=== PATIENT | female | born 1995 | race African-American/Black ===

== ENCOUNTER 2016-10-23 09:41 | Emergency (ER) | payer SELFPAY ==
[~2016-10-23] VITALS: Ht 167.6 cm; Wt 81.6 kg
[~2016-10-23 09:41] MED LIST: PRED20TA PO; PROAIR HFA8.5 GM INH
[2016-10-23 10:02] VITALS: BP 117/69
[2016-10-23] MEDS ORDERED: FLUC150T PO (10:40)
[2016-10-23] MEDS ORDERED: OFLO5DRO OS (10:40)
--- NOTE | 2016-10-23 10:41 | PHYS DOC ---
Past Medical History Past Medical History: Hypertension Past Surgical History: Tonsillectomy, Other Additional Past Surgical Histo: HERNIA REPAIR Additional Information: nonsmoker Alcohol Use: None Drug Use: None Adult General Chief Complaint Chief Complaint: EYE PROBLEMS HPI HPI Patient is a 21 year old female who presents with left eye redness and irritation for 2 days. She has had drainage from the eye and matting of the eye in the mornings. She denies change in her vision. She did not injure the eye. She does not wear contact lenses. The patient also complains of an itchy rash under her breasts and in the groin for 3 years intermittently. She states that it feels like dry skin. She frequently changes her bath soap at home but has not changed it recently. She does not have a PCP. Review of Systems Review of Systems Constitutional: Denies fever or chills. [] Eyes: Denies change in visual acuity or eye pain. Reports left eye redness, itching, and drainage. HENT: Denies ear pain, nasal congestion or sore throat. [] Respiratory: Denies cough or shortness of breath. [] Musculoskeletal: Denies back pain or joint pain. [] Integument: Denies skin lesions. Reports rash in the groin and under the breasts. Neurologic: Denies headache, focal weakness or sensory changes. [] Allergies Allergies Allergies Coded Allergies Type Severity Reaction Last Updated Verified No Known Drug Allergies 07/19/16 No Physical Exam Physical Exam Constitutional: Well developed, well nourished, no acute distress, non-toxic appearance. [] HENT: Normocephalic, atraumatic, bilateral external ears normal, oropharynx moist, no oral exudates, nose normal. [] Eyes: PERRLA, EOMI. Left eye conjunctival injection with clear discharge. There is no foreign body seen. There is no swelling of the eyelids or periorbital region. Neck: Normal range of motion, no tenderness, supple, no stridor. [] Skin: Warm, dry, no erythema. There is an intertriginous rash under both breasts and in the groin bilaterally. Neurologic: Alert and oriented X 3, normal motor function, normal sensory function, no focal deficits noted. [] Psychologic: Affect normal, judgement normal, mood normal. [] Current Patient Data Vital Signs Vital Signs Date Time Temp Pulse Resp B/P Pulse Ox O2 Delivery O2 Flow Rate FiO2 10/23/16 10:02 97.6 65 18 100 Room Air 97.6 EKG EKG [] Radiology/Procedures Radiology/Procedures [] Course & Med Decision Making Course & Med Decision Making Pertinent Labs and Imaging studies reviewed. (See chart for details) [] Dragon Disclaimer Dragon Disclaimer This electronic medical record was generated, in whole or in part, using a voice recognition dictation system. Departure Departure Impression: Primary Impression: Conjunctivitis Additional Impression: Intertrigo Disposition: HOME, SELF-CARE Condition: STABLE Referrals: JONATAN GONZALEZ MD Patient Instructions: Bacterial Conjunctivitis, Pcuj-[id number], Intertrigo, Easy- to-Read Additional Instructions: Please use the prescribed antibiotic eye drops as directed for 1 week. Please practice good hand hygiene and wash your hands often to avoid spreading infection to others. Please avoid touching your eyes. If you do, wash your hands immediately. Please take the prescribed pills for your rash. Take 1 pill weekly. Please follow up with the [facility] specialist listed below if the rash does not improve. Return to the emergency department if you have any new or concerning symptoms. Scripts Fluconazole (Diflucan)150 Mg Tablet1 Tab PO WEEKLY #2 TAB Prov:TUAN HERNÁNDEZ 10/23/16 Ofloxacin (Ocuflox)5 Ml Drops1 Drop OS QID 7 Days Prov:TUAN HERNÁNDEZ 10/23/16 Problem Qualifiers Primary Impression: Conjunctivitis Conjunctivitis type: acute Acute conjunctivitis type: bacterial Laterality : left Qualified Code: H10.32 - Unspecified acute conjunctivitis, left eye TUAN HERNÁNDEZ Oct 23, 2016 10:40
== END 2016-10-23 11:24 | disposition home or self-care (01) ==
LOC: ER 09:41
DX: H10.9 Unspecified conjunctivitis (principal); L30.4 Erythema intertrigo; I10 Essential (primary) hypertension
CPT/HCPCS: 99283

== ENCOUNTER 2016-11-21 19:02 | Emergency (ER) | payer SELFPAY ==
[~2016-11-21] VITALS: Ht 167.6 cm; Wt 81.6 kg
[~2016-11-21 19:02] MED LIST changes: +FLUC150T PO; +OFLO5DRO OS
[2016-11-21 19:07] VITALS: BP 117/66
--- NOTE | 2016-11-21 20:01 | PHYS DOC ---
Past Medical History Past Medical History: Hypertension, Migraines Past Surgical History: Tonsillectomy, Other Additional Past Surgical Histo: HERNIA REPAIR Alcohol Use: None Drug Use: None Adult General Chief Complaint Chief Complaint: HEADACHE HPI HPI Patient is a 21 year old female who presents stating " I'm here for my blood pressure medicine". Patient states in 2014 they put her on blood pressure medicines and she stopped taking it. Patient states she would like to be back on the medication. Informed patient, my understanding her chief complaint is a headache. Patient states she does not have a headache. She states she wants her blood pressure medicine. I asked her what blood pressure medicine she takes, she states she does not know the name. She states the last time she took it was 2014. She states whenever she overworks herself her blood pressure goes up. 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 Review of Systems Review of Systems Constitutional: Denies fever or chills [] Eyes: Denies change in visual acuity, redness, or eye pain [] HENT: Denies nasal congestion or sore throat [] Respiratory: Denies cough or shortness of breath [] Cardiovascular: BP medication refill GI: Denies abdominal pain, nausea, vomiting, bloody stools or diarrhea [] : Denies dysuria or hematuria [] Musculoskeletal: Denies back pain or joint pain [] Integument: Denies rash or skin lesions [] Neurologic: Denies headache, focal weakness or sensory changes [] Endocrine: Denies polyuria or polydipsia [] Allergies Allergies Allergies Coded Allergies Type Severity Reaction Last Updated Verified No Known Drug Allergies 07/19/16 No Physical Exam Physical Exam Constitutional: Well developed, well nourished, no acute distress, non-toxic appearance. [] HENT: Normocephalic, atraumatic, bilateral external ears normal, oropharynx moist, no oral exudates, nose normal. [] Eyes: PERRLA, EOMI, conjunctiva normal, no discharge. [] Neck: Normal range of motion, no tenderness, supple, no stridor. [] Cardiovascular:Heart rate regular rhythm, no murmur [] Lungs & Thorax: Bilateral breath sounds clear to auscultation [] Abdomen: Bowel sounds normal, soft, no tenderness, no masses, no pulsatile masses. [] Skin: Warm, dry, no erythema, no rash. [] Back: No tenderness, no CVA tenderness. [] Extremities: No tenderness, no cyanosis, no clubbing, ROM intact, no edema. [] Neurologic: Alert and oriented X 3, normal motor function, normal sensory function, no focal deficits noted. [] Psychologic: Affect normal, judgement normal, mood normal. [] Current Patient Data Vital Signs Vital Signs Date Time Temp Pulse Resp B/P Pulse Ox O2 Delivery O2 Flow Rate FiO2 11/21/16 19:07 97.7 66 20 117/66 100 Room Air 97.7 EKG EKG [] Radiology/Procedures Radiology/Procedures [] Course & Med Decision Making Course & Med Decision Making Pertinent Labs and Imaging studies reviewed. (See chart for details) Patient is in the ED requesting a refill for her blood pressure medicine. She does not know the name of the medication, the last time she took it was 2014. Her vitals in the ED blood pressure is 117/66, heart rate 66, respiration 20 room air, O2 sats 100% on room air, temperature 97.7. She has no PCP. I provided a clinic list as well as a doctor's list, recommended she follows up with the primary care doctor and have the money to her BP is and they'll decide if she needs medication or not. Dragon Disclaimer Dragon Disclaimer This electronic medical record was generated, in whole or in part, using a voice recognition dictation system. Departure Departure Impression: Primary Impression: Medication refill Disposition: HOME, SELF-CARE Condition: STABLE Referrals: NO PCP (PCP) Please follow-up with a doctor from the list provided to have your blood pressure checked Patient Instructions: General Headache Without Cause, [id number] Additional Instructions: You were seen requesting a refill for your blood pressure medicine. Unfortunately you do not know the name of the medication you were on. Your blood pressure the emergency room is 117/66. Follow-up with a doctor from the list provided and have them monitor your blood pressure, they will decide if they will put you back on blood pressure medicines. ELIJAH ELISE APRN Nov 21, 2016 20:01
== END 2016-11-21 20:04 | disposition home or self-care (01) ==
LOC: ER 19:02
DX: Z76.0 Encounter for issue of repeat prescription (principal); I10 Essential (primary) hypertension; G43.909 Migraine, unspecified, not intractable, without status migrainosus
CPT/HCPCS: 99283

== ENCOUNTER 2017-09-02 09:13 | Emergency (ER) | payer SELFPAY ==
[2017-09-02 11:09] LABS: URINE HCG POC HCG NEGATIVE (Negative)
[2017-09-02 11:11] LABS: ADD MAN DIFF? NO
[2017-09-02 11:20] LABS: BASO # 0.1 x10^3/uL (0.0-0.2); BASO % 1 % (0-3); EOS # 0.1 x10^3/uL (0.0-0.7); EOS % 2 % (0-3); HEMATOCRIT 38.9 % (36.0-47.0); HEMOGLOBIN 12.7 g/dL (12.0-15.5); LYMPH # 1.9 x10^3/uL (1.0-4.8); LYMPH % 36 % (24-48); MEAN CORPUSCULAR HEMOGLOBIN 31 pg (25-35); MEAN CORPUSCULAR HGB CONC 33 g/dL (31-37); MEAN CORPUSCULAR VOLUME 93 fL (79-100); MONO # 0.6 x10^3/uL (0.0-1.1); MONO % 12 % (0-9); NEUT # 2.7 x10^3uL (1.8-7.7); NEUT % 50 % (31-73); PLATELET COUNT 218 x10^3/uL (140-400); RED BLOOD COUNT 4.17 x10^6/uL (3.50-5.40); RED CELL DISTRIBUTION WIDTH 14.8 % (11.5-14.5); WHITE BLOOD COUNT 5.4 x10^3/uL (4.0-11.0)
[2017-09-02 11:28] LABS: ANION GAP 8 (6-14); BLOOD UREA NITROGEN 10 mg/dL (7-20); BUN/CREATININE RATIO 13 (6-20); CALCIUM 8.8 mg/dL (8.5-10.1); CARBON DIOXIDE 26 mmol/L (21-32); CHLORIDE 108 mmol/L (98-107); CREATININE 0.8 mg/dL (0.6-1.0); GFR 106.6; GLUCOSE 94 mg/dL (70-99); POTASSIUM 3.5 mmol/L (3.5-5.1); SODIUM 142 mmol/L (136-145)
[2017-09-02 11:33] LABS: ALBUMIN 3.3 g/dL (3.4-5.0); ALBUMIN/GLOBULIN RATIO 0.8 (1.0-1.7); ALK PHOS 92 U/L (46-116); ALT (SGPT) 16 U/L (14-59); AST (SGOT) 19 U/L (15-37); TOTAL BILIRUBIN 0.4 mg/dL (0.2-1.0); TOTAL PROTEIN 7.5 g/dL (6.4-8.2)
[2017-09-02 11:39] LABS: NT-PRO BNP 37 pg/mL (0-124)
[2017-09-02 11:43] LABS: CKMB MASS < 0.5 ng/mL (0.0-3.6); CREATINE KINASE 112 U/L (26-192)
[2017-09-02 12:07] LABS: D-DIMER < 0.27 ug/mlFEU (0.00-0.50)
[2017-09-02] MEDS: ERYTHROMYCIN 0.5% OPHTH OINTMENT 1GM TUBE. OS (12:55)
== END 2017-09-02 13:00 | disposition home or self-care (01) ==
LOC: ER 09:13
DX: R06.02 Shortness of breath (principal); R25.2 Cramp and spasm; H57.12 Ocular pain, left eye; F41.9 Anxiety disorder, unspecified; I10 Essential (primary) hypertension; G43.909 Migraine, unspecified, not intractable, without status migrainosus
CPT/HCPCS: 36415; 71046; 80053; 81025; 82553; 83880; 85025; 85379; 99285-25

== ENCOUNTER 2019-08-13 17:16 | Emergency (ER) | payer SELFPAY ==
[~2019-08-13] VITALS: Ht 167.6 cm; Wt 63.5 kg
[~2019-08-13 17:16] MED LIST changes: +ALBU2.5V8 INH; +IBUP-1027 PO; +ORPH100T PO; -PROAIR HFA8.5 GM INH
[2019-08-13] MEDS ORDERED: ONDANSETRON PF 4 MG/2 ML VIAL. IV ONE (17:45)
[2019-08-13] MEDS ORDERED: FAMOTIDINE 20 MG/2 ML VIAL IVP ONE (17:45)
--- NOTE | 2019-08-13 17:51 | PHYS DOC ---
Past Medical History Past Medical History: No Pertinent History, Anxiety, Hypertension, Migraines (BOSSMAN KEYES) Past Surgical History: Tonsillectomy, Other Additional Past Surgical Histo: HERNIA REPAIR (BOSSMAN KEYES) Alcohol Use: Occasionally Drug Use: Marijuana (BOSSMAN KEYES) Adult General Chief Complaint Chief Complaint: FLU SYMPTOM HPI HPI Patient is a 24 year old F who is here today with concerns of vomiting and a bdominal pain since (3 days). She has also had sore throat, cough and congestion and has been around kids who were tested positive for strep throat. Pt reports when she eats she notices a burning in her chest and "heartburn". She has had a prior hernia surgery in the past but no other surgeries. She denies . (BOSSMAN KEYES) Review of Systems Review of Systems Constitutional: Denies fever. Reports chills. HENT: Reports nasal congestion and sore throat. Respiratory: Reports cough and congestion. Cardiovascular: Denies chest pain GI: Reports abd pain, nausea, vomiting and loose stools. : Denies dysuria or hematuria Musculoskeletal: Denies back pain or joint pain Integument: Denies rash or skin lesions Neurologic: Denies headache, focal weakness or sensory changes All other systems were reviewed and found to be within normal limits, except as documented in this note. (BOSSMAN KEYES) Current Medications Current Medications Current Medications Medications (Trade) Dose Ordered Sig/Elizabeth Start Time Stop Time Status Last Admin Dose Admin Ceftriaxone Sodium (Rocephin) 1 gm 1X ONCE 08/13/19 18:45 08/13/19 18:46 DC 08/13/19 18:51 1 GM Famotidine (Pepcid Vial) 20 mg 1X ONCE 08/13/19 17:45 08/13/19 18:03 DC 08/13/19 18:25 20 MG Ondansetron HCl (Zofran) 4 mg 1X ONCE 08/13/19 17:45 08/13/19 18:03 DC 08/13/19 18:25 4 MG Potassium Chloride (Klor-Con) 20 meq 1X ONCE 08/13/19 18:45 08/13/19 18:46 DC 08/13/19 18:50 20 MEQ (COOPER MIRAMONTES DO) Allergies Allergies Allergies Coded Allergies Type Severity Reaction Last Updated Verified No Known Drug Allergies 07/19/16 No (COOPER MIRAMONTES DO) Physical Exam Physical Exam Constitutional: Well developed, well nourished, no acute distress, non-toxic appearance. HENT: Normocephalic, atraumatic, bilateral external ears normal. Pharyngeal erythema, worse on R. No tonsilar exudate noted Neck: Normal range of motion, no tenderness, supple, no stridor. Cardiovascular:Heart rate regular rhythm, no murmur Lungs & Thorax: Bilateral breath sounds clear to auscultation Abdomen: Bowel sounds normal, soft, tender with palpation diffusely mild and worse in epigastric region. Skin: Warm, dry, no erythema, no rash. Back: No tenderness, no CVA tenderness. Extremities: No tenderness, no cyanosis, no clubbing, ROM intact, no edema. Neurologic: Alert and oriented X 3, normal motor function, normal sensory function, no focal deficits noted. Psychologic: Affect normal, judgement normal, mood normal. (BOSSMAN KEYES) Current Patient Data Vital Signs Vital Signs Date Time Temp Pulse Resp B/P (MAP) Pulse Ox O2 Delivery O2 Flow Rate FiO2 08/13/19 19:56 64 15 109/58 (75) 99 Room Air 08/13/19 17:25 98.8 98.8 (COOPER MIRAMONTES DO) Lab Values Laboratory Tests Test 08/13/19 17:22 08/13/19 17:26 08/13/19 17:27 08/13/19 17:30 Urine Collection Type Unknown Urine Color Dk yellow Urine Clarity Cloudy Urine pH 6.0 Urine Specific [place] >=1.030 Urine Protein Negative mg/dL (NEG-TRACE) Urine Glucose (UA) Negative mg/dL (NEG) Urine Ketones (Stick) Negative mg/dL (NEG) Urine Blood Negative (NEG) Urine Nitrite Negative (NEG) Urine Bilirubin Small (NEG) Urine Urobilinogen Dipstick 2.0 mg/dL (0.2 mg/dL) Urine Leukocyte Esterase Large (NEG) Urine RBC Occ /HPF (0-2) Urine WBC 20-40 /HPF (0-4) Urine Squamous Epithelial Cells Many /LPF Urine Bacteria Many /HPF (0-FEW) Urine Mucus Marked /LPF POC Urine HCG, Qualitative Hcg negative (Negative) White Blood Count 4.4 x10^3/uL (4.0-11.0) Red Blood Count 4.54 x10^6/uL (3.50-5.40) Hemoglobin 14.4 g/dL (12.0-15.5) Hematocrit 43.0 % (36.0-47.0) Mean Corpuscular Volume 95 fL (79-100) Mean Corpuscular Hemoglobin 32 pg (25-35) Mean Corpuscular Hemoglobin Concent 34 g/dL (31-37) Red Cell Distribution Width 15.3 % (11.5-14.5) H Platelet Count 190 x10^3/uL (140-400) Neutrophils (%) (Auto) 40 % (31-73) Lymphocytes (%) (Auto) 36 % (24-48) Monocytes (%) (Auto) 21 % (0-9) H Eosinophils (%) (Auto) 3 % (0-3) Basophils (%) (Auto) 1 % (0-3) Neutrophils # (Auto) 1.7 x10^3/uL (1.8-7.7) L Lymphocytes # (Auto) 1.6 x10^3/uL (1.0-4.8) Monocytes # (Auto) 0.9 x10^3/uL (0.0-1.1) Eosinophils # (Auto) 0.1 x10^3/uL (0.0-0.7) Basophils # (Auto) 0.0 x10^3/uL (0.0-0.2) Segmented Neutrophils % 40 % (35-66) Lymphocytes % 41 % (24-48) Atypical Lymphocytes % (Manual) 1 % (0-0) H Monocytes % 14 % (0-10) H Eosinophils % 4 % (0-5) Platelet Estimate Adequate (ADEQUATE) Large Platelets Occ Giant Platelets Occ Sodium Level 142 mmol/L (136-145) Potassium Level 3.1 mmol/L (3.5-5.1) L Chloride Level 105 mmol/L (98-107) Carbon Dioxide Level 28 mmol/L (21-32) Anion Gap 9 (6-14) Blood Urea Nitrogen 9 mg/dL (7-20) Creatinine 1.0 mg/dL (0.6-1.0) Estimated GFR (Cockcroft-Gault) 81.1 BUN/Creatinine Ratio 9 (6-20) Glucose Level 88 mg/dL (70-99) Calcium Level 8.8 mg/dL (8.5-10.1) Total Bilirubin 0.5 mg/dL (0.2-1.0) Aspartate Amino Transferase (AST) 15 U/L (15-37) Alanine Aminotransferase (ALT) 11 U/L (14-59) L Alkaline Phosphatase 77 U/L (46-116) Total Protein 7.7 g/dL (6.4-8.2) Albumin 3.2 g/dL (3.4-5.0) L Albumin/Globulin Ratio 0.7 (1.0-1.7) L Lipase 102 U/L (73-393) Heterophil Agglutinins Negative (NEGATIVE) Influenza Type A Antigen Negative (NEGATIVE) Influenza Type B Antigen Negative (NEGATIVE) Laboratory Tests 08/13/19 17:27 Laboratory Tests 08/13/19 17:27 (COOPER MIRAMONTES DO) EKG EKG [] (BOSSMAN KEYES) Radiology/Procedures Radiology/Procedures [] (BOSSMAN KEYES) Course & Med Decision Making Course & Med Decision Making Pertinent Labs and Imaging studies reviewed. (See chart for details) Pt is feeling better at time of discharge. She was treated with Rocephin here in the ER for a UTI and was also given potassium supplement for hypokalemia. Pt's imaging suggests constipation but does not show signs of bowel obstruction. Discussed that we will treat her for UTI, constipation, pharyngitis and vomiting. Pt to rest, follow bland diet, f/u with PCP and return if symptoms worsen at anytime. (BOSSMAN KEYES) Dragon Disclaimer Dragon Disclaimer This electronic medical record was generated, in whole or in part, using a voice recognition dictation system. (BOSSMAN KEYES) Departure Departure Impression: Primary Impression: Pharyngitis Additional Impressions: Urinary tract infection Constipation Disposition: 01 HOME, SELF-CARE Condition: IMPROVED Referrals: NO PCP (PCP) Patient Instructions: Constipation, Adult, [id number], Urinary Tract Infect ion, [id number], Viral and Bacterial Pharyngitis Scripts Polyethylene Glycol 3350 (MIRALAX) 17 Gm Powd.pack 1 PACKET PO DAILY for constipation for 2 Days, #2 PACKET 0 Refills dissolve in water Prov: BOSSMAN KEYES 08/13/19 Famotidine (PEPCID AC) 10 Mg Tablet 1 TAB PO DAILY for 7 Days, #14 TAB 0 Refills Prov: BOSSMAN KEYES 08/13/19 Ondansetron (ONDANSETRON ODT) 4 Mg Tab.rapdis 4 MG PO BID PRN for NAUSEA/VOMITING for 7 Days, #14 TAB Prov: BOSSMAN KEYES 08/13/19 Cephalexin (KEFLEX) 500 Mg Capsule 1 CAP PO TID for 7 Days, #21 CAP 0 Refills Prov: BOSSMAN KEYES 08/13/19 Attending Signature Attending Signature I have reviewed the PA/PALLET SORTER's note and plan of care. I was available for consultation as needed during the patient's visit in the emergency department. I agree with the clinical impression, plan, and disposition. (COOPER MIRAMONTES DO) Problem Qualifiers BOSSMAN KEYES Aug 13, 2019 17:51 COOPER MIRAMONTES DO Aug 14, 2019 06:45
[2019-08-13 17:54] LABS: INFLUENZA A PATIENT NEGATIVE (NEGATIVE); INFLUENZA B PATIENT NEGATIVE (NEGATIVE)
[2019-08-13 17:54] LABS: BILIRUBIN,URINE SMALL (NEG); CLARITY,URINE CLOUDY; NITRITE,URINE NEGATIVE (NEG); PROTEIN,URINE NEGATIVE (NEG-TRACE)
[2019-08-13 17:55] LABS: BASO % 1 % (0-3); EOS # 0.1 x10^3/uL (0.0-0.7); EOS % 3 % (0-3); HEMOGLOBIN 14.4 g/dL (12.0-15.5); LYMPH # 1.6 x10^3/uL (1.0-4.8); LYMPH % 36 % (24-48); MEAN CORPUSCULAR HEMOGLOBIN 32 pg (25-35); MEAN CORPUSCULAR HGB CONC 34 g/dL (31-37); MEAN CORPUSCULAR VOLUME 95 fL (79-100); MONO # 0.9 x10^3/uL (0.0-1.1); MONO % 21 % (0-9); NEUT # 1.7 x10^3/uL (1.8-7.7); NEUT % 40 % (31-73); PLATELET COUNT 190 x10^3/uL (140-400); RED BLOOD COUNT 4.54 x10^6/uL (3.50-5.40); RED CELL DISTRIBUTION WIDTH 15.3 % (11.5-14.5); WHITE BLOOD COUNT 4.4 x10^3/uL (4.0-11.0)
[2019-08-13 17:59] LABS: CALCIUM 8.8 mg/dL (8.5-10.1); GFR 81.1; POTASSIUM 3.1 mmol/L (3.5-5.1)
[2019-08-13 18:05] LABS: ALBUMIN 3.2 g/dL (3.4-5.0); ALBUMIN/GLOBULIN RATIO 0.7 (1.0-1.7); TOTAL BILIRUBIN 0.5 mg/dL (0.2-1.0); TOTAL PROTEIN 7.7 g/dL (6.4-8.2)
[2019-08-13 18:06] LABS: MONONUCLEOSIS PATIENT NEGATIVE (NEGATIVE)
[2019-08-13 18:09] LABS: COLOR,URINE DK YELLOW
[2019-08-13 18:12] LABS: BACTERIA,URINE MANY /HPF (0-FEW); RBC,URINE OCC /HPF (0-2); SQUAMOUS EPITHELIAL CELL,UR MANY /LPF; WBC,URINE 20-40 /HPF (0-4)
[2019-08-13 18:21] LABS: % ATYL 1 % (0-0); % EOS 4 % (0-5); % LYMPHS 41 % (24-48); % MONOS 14 % (0-10); % SEGS 40 % (35-66)
[2019-08-13 18:22] LABS: PLT ESTIMATE ADEQUATE (ADEQUATE)
[2019-08-13] MEDS ORDERED: POTASSIUM CHLORIDE 20 MEQ TABLET.ER. PO ONE (18:45)
[2019-08-13] MEDS ORDERED: cefTRIAXone IV Push 1 GM VIAL. IVP ONE (18:45)
[2019-08-13] MEDS ORDERED: CEPH-264 PO (19:54)
[2019-08-13] MEDS ORDERED: FAMO10TA26 PO (19:54)
[2019-08-13] MEDS ORDERED: POLY17PO29 PO (19:54)
[2019-08-13] MEDS ORDERED: ONDA4TAB12 PO (19:54)
[2019-08-13 19:56] VITALS: BP 109/58
--- NOTE | 2019-08-14 07:18 | RAD ---
Study: ACUTE ABDOMEN SERIES Indication: Lower abdominal pain. Burning in the chest. Comparison: Chest radiographs 09/02/2017 Findings: Unremarkable cardiomediastinal silhouette and pastor. No pneumothorax, lobar infiltrate or pleural effusion. Nonobstructive bowel gas pattern noting that there is a paucity of small bowel gas. The transverse colon appears to be displaced inferiorly. There is the suggestion of soft tissue fullness throughout the central to lower abdomen however on the supine view, possible gas within the stomach that somewhat conforms to the contour of the transverse colon. No free air seen under the diaphragm. Impression: Nonobstructive bowel gas pattern. Note is made that the transverse colon appears to be displaced inferiorly and there is the suggestion of soft tissue fullness within the central to lower abdomen. Based on what appears to be gas within the stomach on the supine view, this apparent displacement of the transverse colon could be related to gastric distention. As warranted by patient symptomatology, CT could be considered to better evaluate. Electronically signed by: JAQUI WILDER MD (08/14/2019 7:15 AM) [id number]
== END 2019-08-13 20:00 | disposition home or self-care (01) ==
LOC: ER 17:16
DX: J02.9 Acute pharyngitis, unspecified (principal); N39.0 Urinary tract infection, site not specified; K59.00 Constipation, unspecified; R11.2 Nausea with vomiting, unspecified; R09.81 Nasal congestion; R10.13 Epigastric pain; F41.9 Anxiety disorder, unspecified; F12.90 Cannabis use, unspecified, uncomplicated; I10 Essential (primary) hypertension; G43.909 Migraine, unspecified, not intractable, without status migrainosus; Z90.89 Acquired absence of other organs; Z98.890 Other specified postprocedural states
CPT/HCPCS: 36415; 74022; 80053; 81001; 81025; 83690; 85007; 85025; 86308; 87070; 87086; 87804; 87880; 96374; 96375; 99285; J0696; J2405; J3490